=== PATIENT | female | born 1990 | race American Indian/Alaskan Native ===

== ENCOUNTER 2017-09-10 12:22 | Emergency (ER) | payer OTHER ==
[2017-09-10 12:59] VITALS: BP 121/90
[2017-09-10] MEDS ORDERED: NACL 0.9% 1000 ML 1,000 ML IV ONE (13:19)
[2017-09-10] MEDS ORDERED: REGLAN IV ONE (13:22)
--- NOTE | 2017-09-10 13:27 | Emergency Department Report ---
Chief Complaint: Nausea/Vomiting/Diarrhea Stated Complaint: NAUSEA/VOMITING Time Seen by Provider: 09/10/17 13:24 - HPI History of Present Illness: pt is a 27 y/o aaf G3, P1, A-0, Ectopic 1, presents for N/V x 11 weeks worse over past 2 weeks unablty to tolerate po intake 3 days ago , last n/v this am. abdominal pain 3/10 aching super pubic, no vaginal bleeding no spotting, no vaginal discharge no dysuria frequency or urgency , no fever /chills - Exam Vital Signs: Vital Signs 09/10/17 12:56 Temperature 99.1 F Pulse Rate 106 H Respiratory 16 Rate Blood Pressure 121/90 O2 Sat by Pulse 99 Oximetry MSE screening note: Focused history and physical exam performed. Due to findings the following was ordered: ED Disposition for MSE Condition: Stable
[2017-09-10 14:10] LABS: Basophils % (Auto) 0.9 % (0.0-1.8); Eosinophils % (Auto) 0.2 % (0.0-4.3); Hematocrit 41.6 % (30.3-42.9); Hemoglobin 13.8 gm/dl (10.1-14.3); Mean Corpuscular HGB Conc 33 % (30-34); Mean Corpuscular Hemoglobin 30 pg (28-32); Mean Corpuscular Volume 90 fl (79-97); Platelet Count 247 K/mm3 (140-440); Red Blood Count 4.61 M/mm3 (3.65-5.03); Red Cell Distribution Width 12.5 % (13.2-15.2)
[2017-09-10 14:34] LABS: Alanine Aminotransferase 228 units/L (7-56); Albumin 4.4 g/dL (3.9-5); Albumin/Globulin Ratio 1.3 %; Alkaline Phosphatase 74 units/L (35-129); Anion Gap 19 mmol/L; BUN/Creatinine Ratio 8; Blood Urea Nitrogen 4 mg/dL (7-17); Calcium 9.8 mg/dL (8.4-10.2); Carbon Dioxide 25 mmol/L (22-30); Chloride 92.2 mmol/L (98-107); Glucose 120 mg/dL (65-100); Potassium 3.3 mmol/L (3.6-5.0); Sodium 133 mmol/L (137-145); Total Protein 7.7 g/dL (6.3-8.2)
--- NOTE | 2017-09-10 18:05 | Ultrasound Report ---
FINAL REPORT EXAM: US OB TRANSVAGINAL HISTORY: PAIN,NV HX ECTOPIC TECHNIQUE: Ultrasound transvaginal obstetrical PRIORS: Correlation made today's transabdominal exam FINDINGS: There is a single live and intrauterine gestation present. And crown-rump length 0.24 centimeters corresponding to estimated gestational age of 9 weeks 1 day with estimated date of delivery April 14, 2018 Minimal free fluid identified within the cul-de-sac right ovary is 2.9 x 1.7 by 2.4 centimeters The left ovary is 8.5 x 6.5 x 7.6 centimeters. There is a 7.8 centimeter and simple left ovarian cyst likely reflecting corpus luteum IMPRESSION: single live intrauterine gestation estimated at 9 weeks 1 day 7.8 centimeter left ovarian cyst likely corpus luteum
--- NOTE | 2017-09-10 18:08 | Ultrasound Report ---
FINAL REPORT EXAM: US OB < = 14 WEEKS FETUS HISTORY: adominal pain 11 weeks TECHNIQUE: PRIORS: None. FINDINGS: There is a single live and intrauterine gestation present. crown-rump length 0.24 centimeters corresponding to estimated gestational age of 9 weeks 1 day with estimated date of delivery April 14, 2018 Minimal free fluid identified within the cul-de-sac right ovary is 2.9 x 1.7 by 2.4 centimeters The left ovary is 8.5 x 6.5 x 7.6 centimeters. There is a 7.8 centimeter and simple left ovarian cyst likely reflecting corpus luteum IMPRESSION: single live intrauterine gestation estimated at 9 weeks 1 day 7.8 centimeter left ovarian cyst likely corpus luteum
== END 2017-09-10 23:10 | disposition left against medical advice (07) ==
LOC: ED 12:22
DX: R11.2 Nausea with vomiting, unspecified (principal); Z53.21 Procedure and treatment not carried out due to patient leaving prior to being seen by health care provider
CPT/HCPCS: 36415; 76801; 76817; 80053; 84702; 85025